=== PATIENT | female | born 1960 | race African-American/Black ===

== ENCOUNTER 2021-04-04 20:58 | Inpatient (IN) | payer OTHER, MEDICAID ==
[~2021-04-04] VITALS: Ht 162.6 cm; Wt 71.2 kg
[2021-04-04] MEDS ORDERED: NALOXONE HCL 1 MG/ML 2ML VIAL IV ONE (21:30)
[2021-04-04] MEDS ORDERED: HALOPERIDOL LACTATE 5MG/ML VIAL IM ONE (22:00)
[2021-04-04 22:47] LABS: BASOPHILS % 0.3 % (0.0-2.0); EOSINOPHILS % 0.3 % (0.0-5.0); HEMATOCRIT. 39.2 % (36.0-48.0); HEMOGLOBIN. 13.3 g/dL (12.0-16.0); LYMPHOCYTES % 18.7 % (20.0-50.0); MEAN CORPUSCULAR HEMOGLOBIN 31.7 pg (28.0-32.0); MEAN CORPUSCULAR VOLUME 93.5 fL (81.0-99.0); MEAN PLATELET VOLUME 7.3 fl (7.4-10.4); MONOCYTES % 5.2 % (2.0-8.0); NEUTROPHILS % 75.5 % (40.0-76.0); PLATELET 209 x1000/uL (130-400); RED BLOOD CELL COUNT 4.19 mill/uL (4.2-5.4); RED CELL DISTRIBUTION WIDTH 15.5 % (11.6-14.6)
[2021-04-04 22:49] LABS: CHLORIDE 104 mEq/L (98-107)
[2021-04-04 22:54] LABS: ETHANOL BLOOD < 10 mg/dL
[2021-04-04 22:58] LABS: CREATINE KINASE 304 IU/L (26-192)
[2021-04-04] MEDS ORDERED: MAGNESIUM 2 G PREMIX 50 ML IV ONE (23:15)
[2021-04-04] MEDS ORDERED: POTASSIUM CHLORIDE INJ 40 MEQ in DEXT 5% WATER 250 ML IV ONE (23:15)
[2021-04-04] MEDS ORDERED: IOHEXOL-350 100 ML BOTTLE ONE (23:34)
[2021-04-05] MEDS ORDERED: IOHEXOL-350 100 ML BOTTLE ONE (00:05)
[2021-04-05] MEDS ORDERED: POTASSIUM CHLORIDE 20MEQ TABLET SR PO NR (09:30)
[2021-04-05] MEDS ORDERED: ONDANSETRON HCL 4MG/2ML INJ IV PRN (09:30)
[2021-04-05] MEDS ORDERED: ACETAMINOPHEN 325MG TABLET PO PRN (09:30)
[2021-04-05 10:40] VITALS: BP 154/108
[2021-04-05 12:00] VITALS: BP 143/81
[2021-04-05] MEDS ORDERED: LEVO200T8 MT (12:13)
[2021-04-05] MEDS ORDERED: OXYC1TAB12 MT (12:13)
[2021-04-05 12:18] LABS: CLARITY URINE CLEAR (CLEAR); COLOR URINE YELLOW (YELLOW); KETONES URINE NEGATIVE (NEGATIVE); LEUKOCYTE ESTERASE URINE NEGATIVE (NEGATIVE); NITRITE URINE NEGATIVE (NEGATIVE); OCCULT BLOOD URINE NEGATIVE (NEGATIVE); PH URINE 6.5 (4.5-8.0); PROTEIN URINE TRACE (NEGATIVE); SPECIFIC GRAVITY URINE 1.045 (1.005-1.030); UROBILINOGEN URINE 0.2 E.U./dL (0.2-1.0)
[2021-04-05 14:15] LABS: *AMPHETAMINES SCREEN URINE PRESUMTIVE POSITIVE (NEGATIVE); *BARBITURATES SCREEN URINE NEGATIVE (NEGATIVE); *BENZODIAZEPINES SCREEN URINE NEGATIVE (NEGATIVE)
[2021-04-05 14:16] LABS: *COCAINE SCREEN URINE PRESUMTIVE POSITIVE (NEGATIVE); CANNABINOID URINE SCREEN PRESUMTIVE POSITIVE (NEGATIVE); METHADONE URINE SCREEN NEGATIVE (NEGATIVE); OPIATES URINE SCREEN PRESUMTIVE POSITIVE (NEGATIVE); PHENCYCLIDINE URINE SCREEN NEGATIVE (NEGATIVE)
[2021-04-05] MEDS: NICOTINE 14MG PATCH TD SCH (15:01)
[2021-04-05 16:00] VITALS: BP 138/86
[2021-04-05 20:00] VITALS: BP 153/79
[2021-04-06] VITALS: BP 115/64
[2021-04-06 04:00] VITALS: BP 162/98
[2021-04-06 06:00] VITALS: BP 140/91
[2021-04-06 08:00] VITALS: BP 137/87
[2021-04-06 08:39] VITALS: BP 137/87
[2021-04-06] MEDS: NICOTINE 14MG PATCH TD SCH (08:59)
[2021-04-06 12:00] VITALS: BP 134/86
== END 2021-04-06 12:30 | disposition home or self-care (01) | DRG 917 ==
LOC: ER 21:31 → 5WST 04-05 02:21 → EDBEDREQTM 04-05 02:23 → EDBEDREQSVC 04-05 02:23 → EDBEDREQDT 04-05 02:23 → EDBEDREQ 04-05 02:23 → ENRESERV 04-05 08:45
PROVIDERS: ADMIT Internal Medicine; ATTEND Internal Medicine
DX: T50.7X1A Poisoning by analeptics and opioid receptor antagonists, accidental (unintentional), initial encounter (principal); G92 Toxic encephalopathy; E87.6 Hypokalemia; M54.9 Dorsalgia, unspecified; F14.10 Cocaine abuse, uncomplicated; F15.10 Other stimulant abuse, uncomplicated; F12.10 Cannabis abuse, uncomplicated; F11.10 Opioid abuse, uncomplicated; G89.29 Other chronic pain; F17.210 Nicotine dependence, cigarettes, uncomplicated; I10 Essential (primary) hypertension; Z91.19 Patient's noncompliance with other medical treatment and regimen; Z79.891 Long term (current) use of opiate analgesic; Z91.011 Allergy to milk products; Z71.6 Tobacco abuse counseling
CPT/HCPCS: 36415; 70496; 70498; 71045; 80053; 80305; 80307; 80320; 80329; 81003; 82140; 82550; 82962; 83036; 84132; 84484; 85025; 97161; 99291; J1630; J2310; J3475; J3480; J7060; Q9967; G0480